=== PATIENT | male | born 1995 | race Caucasian/White ===

== ENCOUNTER 2024-08-08 11:18 | Emergency (ER) | payer BC, SELFPAY ==
[2024-08-08 11:23] VITALS: BP 120/72
[2024-08-08 11:54] LABS: Hematocrit 38.4 % (39.0-52.0); Hemoglobin 13.6 g/dL (13.0-18.0); Mean Corp Hgb Conc. 35.4 g/dL (33.0-37.0); Mean Corpuscular Hgb 29.6 pg (27.0-31.0); Mean Corpuscular Volume 83.7 fL (80.0-94.0); Mean Platelet Volume 9.8 fL (7.4-10.4); Platelet Count 188 10^3/uL (130-400); Red Blood Cell Count 4.59 10^6/uL (4.70-6.10); Red Cell Dist. Width 11.7 % (11.5-14.5); White Blood Cell Count 3.3 10^3/uL (4.8-10.8)
[2024-08-08 12:11] LABS: Blood Urea Nitrogen 14 mg/dl (9-20); Chloride 103 mmol/L (98-107); Glucose 92 mg/dl (70-99); Potassium 4.1 mmol/L (3.5-5.1); Sodium 140 mmol/L (135-145); eGFR > 60.00
[2024-08-08 12:12] LABS: ALT (SGPT) 81 U/L (0-50); AST (SGOT) 51 U/L (17-59); Albumin 4.3 g/dl (3.5-5.0); Alkaline Phosphatase 76 U/L (38-126); Calcium 9.4 mg/dl (8.4-10.2); Carbon Dioxide 31 mmol/L (22-30); Total Bilirubin 0.8 mg/dl (0.2-1.3); Total Protein 6.9 g/dl (6.3-8.2)
[2024-08-08 12:15] LABS: % Basophils 0.6 % (0-2); % Eosinophils 11.9 % (0-6); % Lymphocytes 23.9 % (20.5-51.1); % Monocytes 15.6 % (1.7-9.3); Absolute Eosinophils 0.4 10^3/uL (0-0.7); Absolute Lymphocytes 0.8 10^3/uL (1.2-3.4); Absolute Monocytes 0.5 10^3/uL (0.1-0.6); Absolute Neutrophils 1.6 10^3/uL (1.4-6.5); Nucleated Red Blood Cells % 0 % (-)
[2024-08-08 12:22] LABS: Troponin I < 0.012 ng/ml
--- NOTE | 2024-08-08 13:09 | ED.GENMED ---
History of Present Illness
General
Chief Complaint: Breathing Problem
Time Seen by Provider: 08/08/24 12:39
History of Present Illness
History of Present Illness:
28-year-old male without any significant past medical history presenting to the emergency department for fatigue and shortness of breath. Patient reports 3 days ago he started to feel fatigued and generally unwell. 2 days ago he noticed a
right-sided chest pain that has since resolved. About 2 hours prior to arrival he started to feel short of breath. Denies any cough. 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 Denies fever. Denies present chest pain.
Denies any history of blood clots or cardiac history. Denies abdominal pain or GI symptoms. Denies additional acute medical complaints
Phy Exam
Physical Exam
Physical Exam:
General: Well-appearing, no clinical signs of dehydration, nontoxic and in no acute distress
HEENT: protecting airway
Neck: appears supple
CV: Normal heart rate, regular rhythm
Resp: No accessory muscle use, no increased work of breathing. No tenderness to the chest wall
Abd: Soft and non-distended, no tenderness to palpation
Extremities: No deformities, no swelling
Neuro: alert, no focal neurologic deficit
: deferred
Rectal: deferred
Psych: Normal affect
Skin: Intact
Course
Orders/Labs/Results
Orders:
Orders
08/08/24 11:24
Electrocardiogram (*1) Urgent
Reason for Study: Chest Pain
EKG- Treatment ONCE
08/08/24 11:29
Complete Blood Count/With Diff Urgent
Comprehensive Metabolic Panel Urgent
Troponin I Urgent
08/08/24 12:59
CR Chest - 2 Views Urgent
Comment:
Reason For Exam: SOB
08/08/24 13:30
COVID-19 Antigen Urgent
Source: Nasal Swab
Influenza A+B Rapid Molecular Urgent
[facility] Source: Nasal Swab
Specimen Description:
Abnormal Lab Results
08/08/24
11:29
WBC 3.3 L 10^3/uL
(4.8-10.8)
RBC 4.59 L 10^6/uL
(4.70-6.10)
Hct 38.4 L %
(39.0-52.0)
Absolute Lymphs (auto) 0.8 L 10^3/uL
(1.2-3.4)
Monocytes % 15.6 H %
(1.7-9.3)
Eosinophils % 11.9 H %
(0-6)
Carbon Dioxide 31 H mmol/L
(22-30)
ALT 81 H U/L
(0-50)
08/08/24 11:29
08/08/24 11:29
Vital Signs
Initial and Last Documented VS:
Initial Vital Signs
Temp
98.8 F
08/08/24 11:19
Last Documented Vital Signs
Temp Pulse Resp BP Pulse Ox
98.8 F 86 16 120/72 100
08/08/24 11:23 08/08/24 11:23 08/08/24 11:23 08/08/24 11:23 08/08/24 11:23
MDM/Problems Addressed
MDM/Problems Addressed:
28-year-old male presenting for generally feeling unwell and shortness of breath. Vital signs are normal
On exam patient is resting comfortably, no acute distress, no respiratory distress. Unremarkable cardiac and pulmonary exam. Overall suspect likely viral syndrome. Notes 3 days ago started feel unwell with fatigue, chills. EKG obtained,
nonischemic, without present concern for ACS. No PE risk factors. Will plan for viral swabs and chest x-ray.
14:15 - Patient's labs are unremarkable. Chest x-ray without acute cardio pulmonary disease, does mention possible asthmatic type process. Will try prescribing inhaler. Viral swabs negative. Continue to suspect viral syndrome. Stable for
discharge at this time and outpatient supportive therapy. Return precautions discussed and patient verbalized understanding
*EKG
Interpreted by ED Provider?: Yes
EKG Intrepretation Date: 08/08/24
EKG Intrepretation Time: 13:12
Interpretation: normal
Comparison EKG: no comparison EKG present
Heart Rate: 76
Rate: normal
Rhythm: sinus
[place]: normal axis
Interval: normal interval
QRS Pattern: normal QRS
Ischemia: no ischemia
*Critical Care Note
Total Time (30-74mins, 75-104mins- exclusive of procedures): Not Applicable
ED Attending Note
-
Portions of this chart may have been created with voice recognition software.� Occasional wrong word or��sound alike� substitutions may have occurred due to the inherent limitations of voice recognition software.
Discharge Plan
Departure
Referrals:
Cheyenne Vazquez, [Family Provider] -
Interventions
Interventions:
*Risk Screen - Suicide Last Done: 08/08/24 11:19
*General Assessment Last Done: 08/08/24 11:19
*Neglect/Abuse Screening Last Done: 08/08/24 11:19
*ED- Fall Risk Assessment Last Done: 08/08/24 13:34
*ED COVID-19 Vaccine History Last Done: 08/08/24 13:34
ED- Pulmonary Assessment Last Done: 08/08/24 13:34
Discharge Date and Time
Print Language: AMHARIC
[2024-08-08 14:07] LABS: COVID-19 Antigen Negative (Negative)
== END 2024-08-08 15:03 | disposition home or self-care (01) ==
LOC: EMR 11:18
PROVIDERS: Emergency Medicine; EMERGENCY PHYSICIAN Student in an Organized Health Care Education/Training Program; FAMILY PHYSICIAN Family Medicine
DX: R06.02 Shortness of breath (principal); R53.83 Other fatigue; Z15.2 Genetic susceptibility to obesity
CPT/HCPCS: 99285; 71046; 80053; 84484; 85025; 87502; 87811; 93005

== ENCOUNTER → 2024-09-06 15:55 | Outpatient (REF) | payer BC, SELFPAY | LOC: HWRAD 15:55 | PROVIDERS: ATTENDING PHYSICIAN Nurse Practitioner Family; FAMILY PHYSICIAN Family Medicine | DX: M25.561 Pain in right knee (principal) | CPT/HCPCS: 73564 ==

== ENCOUNTER → 2024-09-28 07:50 | Outpatient (REF) | payer BC, SELFPAY | LOC: MRI 3T 07:50 | PROVIDERS: ATTENDING PHYSICIAN Family Medicine | DX: M25.561 Pain in right knee (principal) | CPT/HCPCS: 73721 ==